=== PATIENT | male | born 1965 ===

== ENCOUNTER 2018-02-07 19:43 | Emergency (ER) | payer SELFPAY ==
[2018-02-07 19:54] VITALS: BP 121/79; PULSE 99; TEMP 98.1; O2SAT 98
--- NOTE | 2018-02-07 20:18 | C.PDOC ---
History Of Present Illness 52 y/o male presents to ED with complaints of numbness and tingling to right leg as well as similar symptoms to right arm and shoulder when he laying down for 1 week. Patient states today started feeling right sided neck pain when turning his head. Patient admits to injury to his spine area 1 year ago after falling from truck at work and needed physical therapy. Denies recent injury, headache, fever, chills, stiffness or swelling. Time Seen by Provider: 02/07/18 20:01 Chief Complaint (Nursing): Upper Extremity Problem/Injury History Per: Patient History/Exam Limitations: no limitations Onset/Duration Of Symptoms: Days Current Symptoms Are (Timing): Still Present Past Medical History Reviewed: Historical Data, Nursing Documentation, Vital Signs Vital Signs: Last Vital Signs Temp 98.1 F 02/07/18 19:52 Pulse 99 H 02/07/18 19:52 Resp 20 02/07/18 21:09 BP 121/79 02/07/18 19:52 Pulse Ox 98 02/07/18 20:59 - Medical History PMH: No Chronic Diseases Surgical History: No Surg Hx Family History: States: No Known Family Hx - Social History Hx Tobacco Use: No Hx Alcohol Use: Yes Hx Substance Use: No - Immunization History Hx Tetanus Toxoid Vaccination: No Hx Influenza Vaccination: No Hx Pneumococcal Vaccination: No Review Of Systems Cardiovascular: Negative for: Chest Pain Musculoskeletal: Positive for: Arm Pain, Leg Pain Skin: Negative for: Rash Neurological: Positive for: Numbness Physical Exam - Physical Exam Appears: Non-toxic, No Acute Distress Skin: Warm, Dry, No Rash Head: Atraumatic, Normacephalic Eye(s): bilateral: Normal Inspection, PERRL, EOMI Oral Mucosa: Moist Neck: Normal ROM, Paracervical Tenderness, No Step Off Deformity, Supple, Other (Mild tenderness to right trapezius muscle.) Cardiovascular: Rhythm Regular, No Murmur Respiratory: Normal Breath Sounds, No Rales, No Rhonchi, No Wheezing Back: No CVA Tenderness, No Paraspinal Tenderness Extremity: Bilateral: Atraumatic, Normal Color And Temperature, Normal ROM Neurological/Psych: Oriented x3, Normal Speech, Normal Motor, Normal Sensation Gait: Steady ED Course And Treatment O2 Sat by Pulse Oximetry: 98 (RA) Pulse Ox Interpretation: Normal Medical Decision Making Medical Decision Making: Impression: neck pain, extremity tingling Plan: * Flexiril * Neurontin * Toradol Progress: Xrays shows straightening of lumbar lordosis no subluxation or fracture. C- spine shows degenerative changes On re-eval, patient seated comfortably and reports pain is improving and denies any sensory changes at this time. He has no fever nuchal rigidity and vital signs are stable. Disposition Counseled Patient/Family Regarding: Diagnosis, Need For Followup, Rx Given - Disposition Referrals: [facility] [Outside] [facility] [Outside] Disposition: HOME/ ROUTINE Disposition Time: 20:56 Condition: GOOD Additional Instructions: Apply heat to area 15 minutes three times a day. Take Tylenol as needed for pain Take Motrin as needed for pain every 6 hours, with food to not upset stomach. Take Flexeril for muscle pain and spasm, caution can cause drowsiness. Follow up with your doctor for regular physical checkup and labs Aplique calor al willam 15 minutos tierra veces al da. Curtis Tylenol segn sea necesario para el dolor Curtis Motrin cuando sea necesario para el dolor cada 6 horas, con alimentos para no alterar el estmago. Curtis Flexeril para el dolor y el espasmo muscular, la precaucin puede causar somnolencia. Govind un seguimiento con carrillo mdico para un control fsico regular y laboratorios Prescriptions: Cyclobenzaprine [Cyclobenzaprine HCl] 10 mg PO TID #30 tab Ibuprofen [Motrin] 600 mg PO Q8 #30 tab Instructions: Radiculopathy (DC), Generalized Neck Pain (DC) Forms: [employer] (Thai) Print Language: [place] CITIZEN - POA Present On Arrival: None - Clinical Impression Clinical Impression: Cervical radiculopathy, Lumbar radicular pain, Neck pain on right side - PA / CLAIMS ATTORNEY / Resident Statement MD/DO has reviewed & agrees with the documentation as recorded. - Scribe Statement The provider has reviewed the documentation as recorded by the Shengibherbert Garcia All medical record entries made by the Scribherbert were at my direction and personally dictated by me. I have reviewed the chart and agree that the record accurately reflects my personal performance of the history, physical exam, medical decision making, and the department course for this patient. I have also personally directed, reviewed, and agree with the discharge instructions and disposition.
[2018-02-07 21:10] VITALS: RESP 20
--- NOTE | 2018-02-08 08:40 | RAD ---
PROCEDURE: Radiographs of the Lumbar Spine. HISTORY: back pain right side COMPARISON: No prior. FINDINGS: BONES: Vertebral body heights are maintained. Mild sclerosis bilateral sacroiliac joints, right greater than left which can be seen in a sacroiliitis. Multilevel small anterior osteophyte formation at L3, L4, and L5. Mild grade 1 anterolisthesis of L5 with respect to L4 and S1. Suspicion of bilateral pars defects at L5. DISC SPACES: [id number] disc space narrowing at L5-S1. OTHER FINDINGS: None. IMPRESSION: No acute lumbar spine fracture or subluxation identified. Suspicion of chronic bilateral pars defects at L5. Additional findings as above.
--- NOTE | 2018-02-08 10:10 | RAD ---
Cervical spine three views History: Back pain. Comparison: None available. Findings: Cervical spine is visualized from C1 through C7. No prevertebral soft swelling. Few inferior endplate concavities at the C3 through C5 vertebral bodies. Question small posterior disc osteophyte complexes at the C3-4 and C4-5 levels. This may be better evaluated with MRI. No evidence for acute displaced fracture or dislocation. Dens is grossly preserved. Multilevel uncovertebral joint and facet hypertrophy. Impression: Degenerative changes. If pain persists, consider MRI.
== END 2018-02-07 21:09 | disposition home or self-care (01) ==
LOC: C.ER 19:43
DX: M54.12 Radiculopathy, cervical region (principal); M54.16 Radiculopathy, lumbar region
CPT/HCPCS: 72040; 72100; 96372; 99284; J1885